=== PATIENT | male | born 1990 | race Caucasian/White ===

== ENCOUNTER 2022-05-10 08:40 | Outpatient (REF) | payer SELFPAY ==
[2022-05-10 08:41] VITALS: BP 130/80; PULSE 97; RESP 12; TEMP 36.5; O2SAT 99
--- NOTE | 2022-05-10 08:54 | EKG12_ITS ---
Test Reason : SYNCOPE Blood Pressure : / mmHG Vent. Rate : 096 BPM Atrial Rate : 096 BPM P-R Int : 138 ms QRS Dur : 080 ms QT Int : 340 ms P-R-T Axes : 062 065 058 degrees QTc Int : 429 ms Normal sinus rhythm with sinus arrhythmia Normal ECG Confirmed by NESTOR KINGSTON, MAIKEL ([id number]), newspaper editor managing TONYA SILVA ([id number]) on 05/12/2022 11:56:28 AM Referred By: Confirmed By:MAIKEL BAEZ MD
--- NOTE | 2022-05-10 09:02 | EX.ED.DYSGE1 ---
HPI History of Present Illness Chief Complaint: Syncope Informant: patient Narrative Narrative: 31-year-old male currently in the custody of the [facility] Alf was apparently asleep in his bunk was woken up. He jumped up and began to feel warm and lightheaded. He notes that he began to sweat eventually passed out. He states this happened to him when he was younger but has not happened in recent memories. He denies any chest pain shortness of breath or palpitations. States he otherwise feels fine right now. He does note a cut to the back of his head from striking his head on the ground. He denies any nausea or vomiting. Unknown last tetanus PFSH PFSH Medical History no medical history no medical history Home Medications NK 05/10/22 [History Last Taken Unknown] Allergy/AdvReac Type Severity Reaction Status Date / Time No Known Allergies Allergy Verified 05/10/22 08:43 Social History Smoking Status: Never smoker ROS ROS ED Constitutional Constitutional ED: Denies chills or weight loss Eyes Eyes: Denies change in vision or diplopia ENT ENT ED: Denies ear pain, rhinorrhea or sore throat Cardiovascular Cardiovascular: Reports other Details: Syncope ; Denies chest pain, orthopnea, palpitations or racing heartbeat Respiratory/Chest Respiratory/Chest: Denies cough, dyspnea or orthopnea Gastrointestinal Gastrointestinal: Denies abdominal pain, diarrhea, nausea or vomiting Genitourinary Genitourinary ED: Denies dysuria, hematuria or urinary frequency Musculoskeletal Musculoskeletal: Denies arthralgias or myalgias Integumentary Denies abscess or rash Neurologic Neurologic: Reports headache(s); Denies weakness Psychiatric Psychiatric: Denies anxiety, depression, suicidal ideation or suicidal thoughts Endocrine Endocrinology: Denies polydipsia, polyphagia or polyuria Allergic/Immunologic Allergic/Immunologic ED: Denies mouth swelling, tongue swelling or urticaria EXAM Physical Exam Const Vital Signs: 05/10/22 08:41 05/10/22 08:55 Temperature 97.7 F L Temperature Source Oral Pulse Rate 97 Respiratory Rate 12 Respiratory Effort Normal Non-Labored Respiratory Pattern Normal Blood Pressure 130/80 H Blood Pressure Mean 96 Pulse Ox 99 Oxygen Delivery Method Room Air Positive well nourished and well developed General Appearance ED: well developed HEENT Reports normocephalic and moist mucous membranes HEENT Narrative: There is a 1 cm linear laceration to the occiput with mild venous bleeding. Wound edges are not approximated Eyes PERRL and EOMs intact bilaterally Neck no lymphadenopathy, supple and no JVD Resp normal respiratory effort and clear to auscultation bilaterally Cardio regular rate, regular rhythm and no murmurs GI normal to inspection, nondistended, normoactive bowel sounds and non-tender Palpation: soft Back/Spine no CVA tenderness and normal ROM Extremity normal to inspection General Extremety ED: Negative for edema General Extremity: Negative for edema Neuro oriented x3 and CN's II-XII intact bilaterally Sensorium / Orientation: alert Motor Exam: strength 5/5 throughout Psych mental status grossly normal Mood & Affect: Negative for depressed or tearful Skin no rashes or lesions noted and no wounds MDM MDM MDM Narrative Medical decision making narrative: Basic blood work obtained which was negative. My interpretation the chest x-ray is no acute process. He has been in a normal sinus rhythm with no ACS changes. Wound was locally anesthetized using 1% lidocaine washed with Shur-Clens and explored. It was closed using a total of 2 simple interrupted 3-0 Ethilon sutures. Tetanus was updated with [employer]. Stitches will need to be removed in 5 to 7 days. Follow-up as needed return if worsening or concerns Lab Data Attestation: I reviewed the patient's lab results. Labs: Laboratory Results - last 24 hr 05/10/22 05/10/22 05/10/22 08:45 08:45 08:45 WBC 7.1 RBC 5.19 Hgb 15.8 Hct 46.2 MCV 89.0 MCH 30.4 MCHC 34.2 RDW Std Deviation 37.7 RDW Coeff of Tyler 11.7 Plt Count 311 MPV 10.8 Immature Gran % (Auto) 0.300 Neut % (Auto) 59.9 Lymph % (Auto) 31.8 Bucks % (Auto) 5.6 Eos % (Auto) 1.8 Baso % (Auto) 0.6 Absolute Neuts (auto) 4.3 Absolute Lymphs (auto) 2.26 Nucleated RBC % 0 Sodium 142 Potassium 3.9 Chloride 108 H Carbon Dioxide 30.0 Anion Gap 4 L BUN 5 L Creatinine 0.69 L Estim Creat Clear Calc 133.70 Est GFR (MDRD) Af Amer 171 Est GFR (MDRD) Non-Af 141 BUN/Creatinine Ratio 7.3 L Glucose 128 H Calcium 8.9 Troponin I High Sens 3 Radiography Diagnostic Testing: Clinical Impression(s) from Imaging Studies Chest X-Ray 05/10/22 09:17 IMPRESSION: No acute cardiopulmonary process identified. Electronically Signed: Kalina Yen MD at 9:45 EST Reading Location ID and State: [facility] / [place] Tel , Service support , EKG Initial EKG: Attestation: I personally reviewed and interpreted this EKG as follows: Comments: Normal sinus rhythm with a ventricular rate of 96 bpm Discharge Plan Triage Chief Complaint: Syncope ED Provider: Palmer Quesada Dx/Rx/DC Orders Clinical Impression: Syncope and collapse, Laceration of scalp Prescriptions: No Action NK Primary Care Provider: Care Physician,No Primary Referrals: Care Physician,No Primary [Primary Care Provider] -
[2022-05-10 09:16] LABS: Absolute Lymphocyte Count 2.26 X10^3/uL (0.83-4.51); Absolute Neutrophil Count 4.3 X10^3/uL (2.0-7.7); Basophil# 0.04 X10^3/uL; Basophil% 0.6 % (0-1); Eosinophil# 0.13 X10^3/uL; Eosinophils% 1.8 % (0-5); Hematocrit 46.2 % (40-54); Hemoglobin 15.8 g/dL (13.0-16.5); Lymphocyte # 2.26 X10^3/ul (0.83-4.51); Lymphocyte % 31.8 % (19-41); Mean Corp Hgb Conc 34.2 g/dL (32-36); Mean Corpuscular Hgb 30.4 pg (27.0-32.0); Mean Platelet Vol. 10.8 fl (6.2-12.0); Monocyte% 5.6 % (0-10); NRBC Flagged by Analyzer 0 % (0-5); Neutrophil # 4.26 X10^3/uL (2.7-7.7); Neutrophil % 59.9 % (47-70); Platelet Count 311 K/mm3 (150-450); RBC Distribution Width CV 11.7 % (11.6-14.6); RBC Distribution Width SD 37.7 fl (35.1-43.9); Red Blood Count 5.19 M/mm3 (4.6-6.2); White Blood Count 7.1 K/mm3 (4.4-11.0)
--- NOTE | 2022-05-10 09:17 | RAD_ITS ---
HISTORY: syncope. TECHNIQUE: XR Chest 1 View. COMPARISON: None. FINDINGS: CARDIOMEDIASTINAL BORDERS: Cardiac silhouette within normal limits in size. Mediastinal contour unremarkable. LUNGS: Radiographically clear. PLEURA: No pleural effusion or pneumothorax seen. OSSEOUS STRUCTURES: Unremarkable. RAD/Chest 1 View (Portable) IMPRESSION: No acute cardiopulmonary process identified. Electronically Signed: Kalina Yen MD at 9:45 EST ,
[2022-05-10 09:28] LABS: Anion Gap 4 (5-15); BUN 5 mg/dL (7-18); BUN/Creat Ratio 7.3 RATIO (10-20); Calcium,Total 8.9 mg/dL (8.5-10.1); Chloride 108 mmol/L (98-107); Creatinine, Serum 0.69 mg/dL (0.70-1.30); EST Glomerular Filtration Rate 141 mL/min (>60); Est Glom Filt Rate - Afr Amer 171 mL/min (>60); Glucose 128 mg/dL (74-106); Potassium 3.9 mmol/L (3.5-5.1); Sodium Level 142 mmol/L (136-145)
[2022-05-10 09:34] LABS: Troponin-I HS 3 pg/mL (3.0-78.0)
[2022-05-10] MEDS: Lidocaine 1% (20 ml mdv) 20 ML Vial INFILT (09:34)
[2022-05-10] MEDS: Diphth,Pertuss(Acell),Tet Vac 0.5 ML Vial IM (09:34)
[2022-05-10 10:34] VITALS: BP 118/87
== END 2022-05-10 10:38 | disposition home or self-care (01) ==
LOC: EDREF 08:40
PROVIDERS: Visit Provider Emergency Medicine
DX: S01.01XA Laceration without foreign body of scalp, initial encounter (principal); R55 Syncope and collapse; W01.198A Fall on same level from slipping, tripping and stumbling with subsequent striking against other object, initial encounter; Y92.89 Other specified places as the place of occurrence of the external cause; Z23 Encounter for immunization
CPT/HCPCS: 71045; 80048; 84484; 85025; 90715; 93005; J7030